=== PATIENT | female | born 1960 | race Caucasian/White ===

== ENCOUNTER → 2021-04-11 | Outpatient (CLI) | payer OTHER ==
--- NOTE | 2021-04-11 10:32 | KCIC ---
Study: MR cervical spine without contrast INDICATION: Neck pain with radiation to the left side. COMPARISON: None. TECHNIQUE: Multiplanar MR imaging of the cervical spine performed without the use of intravenous cont rast. FINDINGS: No focal cord signal abnormality. Normally located cerebellar tonsils. Straightening of cervical lordosis. Advanced discogenic arthrosis at C5-C6 with predominantly chronic endplate degenerative signal. Disc space height is otherwise maintained. No fracture or focally aggr essive marrow signal abnormality. Mild degenerative edema adjacent to the left C4-C5 facet joint, mary ge 4 series 4. Symmetric vertebral artery flow voids. C1-C2: The region of the foramen magnum is patent. C2-C3: Moderate facet arthrosis on the left. The central canal and right neural foramen are patent. M ild narrowing of the left neural foramen. C3-C4: Uncovertebral joint hypertrophy on the right right more so than left facet arthrosis. Widely p atent central canal and left neural foramen. Moderate neural foraminal stenosis on the right. C4-C5: No significant disc osteophyte complex with uncovertebral joint hypertrophy. Left more so than right facet arthrosis. Small facet effusion on the left and adjacent degenerative marrow edema. The central canal and right neural foramen are patent. Mild left foraminal stenosis. C5-C6: Disc osteophyte complex eccentric to the left. Left more so than right uncovertebral joint hyp ertrophy. Mild left slightly more so than right facet arthrosis. The disc osteophyte complex contacts and slightly flattens the ventral cord. The central canal remains patent with a mid sagittal dimensi on of 11 mm. Mild right and severe left neural foraminal stenosis. C6-C7: No significant disc osteophyte complex with uncovertebral joint hypertrophy. Bilateral facet a rthrosis. Patent central canal C7-T1: Bilateral facet arthrosis. Patent central canal and neural foramina. T1-T2 through T3-T4: Varying extent of facet arthrosis collectively greater on the left. Widely paten t central canal. Mild neural foraminal stenosis on the left at T1-T2 and T3. IMPRESSION: 1. Advanced discogenic arthrosis isolated to C5-C6. The greatest degree of degenerative change invol ves the facet joints most notable on the left at C4-C5 where there is a small facet effusion and mild degenerative facet edema. Multilevel neural foraminal stenosis which is severe on the left at C5-C6 and moderate on the right at C3-C4. 2. The disc osteophyte complex at C5-C6 contacts and mildly flattens the ventral cord but the centra l canal remains widely patent at this level and throughout the rest of the cervical and upper thoraci c spine. No cord signal abnormality. Electronically signed by: JENNIE TRUONG MD (04/11/2021 10:29 AM) [facility]
== END ==
LOC: KCIC MRI 08:02
PROVIDERS: ATTEND Family Medicine Sports Medicine
DX: M47.813 Spondylosis without myelopathy or radiculopathy, cervicothoracic region (principal); M48.04 Spinal stenosis, thoracic region; M25.78 Osteophyte, vertebrae
CPT/HCPCS: 72141